=== PATIENT | female | born 1990 | race Caucasian/White ===

== ENCOUNTER 2018-01-21 19:32 | Inpatient (IN) ==
[~2018-01-21 19:32] MED LIST: CeFAZolin Premix DUPLEX 2,000 MG/50 ML BAG IVPB ONE; Famotidine 20 MG/2 ML VIAL IVP PRN; Metoclopramide 10 MG/2 ML VIAL IVP PRN; Naloxone 0.4 MG/ML INJ IVP PRN
[2018-01-21] MEDS ORDERED: Ringers Solution, Lactated 1,000 ML IVC SCH ×2 (19:45→23:32)
--- NOTE | 2018-01-21 19:50 | OB/GYN History & Physical ---
Date of Encounter: 01/21/18 Time of Encounter: 19:50 Assessment and Plan (1) premature rupture of membranes Current visit: Yes Status: Acute Consent signed for repeat , anesthesia informed, proceeding to surgery. Qualifiers: PROM onset of labor timing: onset of labor within 24 hours of rupture Qualified Code(s): O42.019 - premature rupture of membranes, onset of labor within 24 hours of rupture, unspecified trimester History of Present Illness HPI: Ms. Anderson is a 27 year old female @ 36 weeks who presents to L&D with ROM at 1:40PM. She report no bleeding, feels good FM, patient with a history of 1 prior . Patient grossly ruptured on L&D. Past Med Surg Social Fam HX - Past Medical History Medical history: no medical history Psychiatric history: no psych history - Past Surgical History Surgical History: other Additional surgical history: c/s, tonsillectomy - Social History Smoking Status: Never smoker Smokeless Tobacco Status: No Alcohol use: none Drug use: none - Family History Mother Living Status: Still Living Hx Family Cancer: Yes (melanoma) Obstetrical History - Pregnancies : 3 Para: 1 Medications and Allergies 19 Chewable Tablet 1 tab PO DAILY 10/17/15 [History] 3 Allergy/AdvReac Type Severity Reaction Status Date / Time Sulfa (Sulfonamide Allergy Hives Verified 11/10/17 16:02 Antibiotics) Review of System OB All systems PM: reviewed and no additional remarkable complaints except as stated Exam - Constitutional Constitutional: well developed - HEENT HEENT: PERRL - Neck Neck exam: full ROM - Lungs Respiratory exam: CTAB - Cardiovascular Cardiovascular exam: RRR - Abdomen Abdomen: Present: gravid - Extremities Extremities exam: warm Results Result Diagrams: 01/21/18 19:32 All other labs normal. - VTE Reasons for not Prescribing Prophylaxis: Treatment not Indicated - Low risk for VTE
[2018-01-21 20:00] LABS: Amphetamine Screen,Urine Negative ng/mL (Cutoff=1000); Barbiturate Screen,Urine Negative ng/mL (Cutoff=200); Benzodiazepines Screen,Urine Negative ng/mL (Cutoff=200); Cannabinoid Screen,Urine Negative ng/mL (Cutoff = 50); Cocaine Screen,Urine Negative ng/mL (Cutoff= 300); Opiate Screen,Urine Negative ng/mL (Cutoff=300); Phencyclidine Screen,Urine Negative ng/mL (Cutoff=25)
[2018-01-21 20:09] LABS: Basophils % 0.2 %; Eosinophils # 0.1 K/mcL (0.0-0.6); Eosinophils % 0.6 %; Hematocrit 30.2 % (35.3-44.9); Hemoglobin 10.2 g/dL (11.5-15.4); Immature Granulocytes % 0.9 % (0-4); Lymphocytes # 1.6 K/mcL (0.6-4.6); Lymphocytes % 16.6 %; Mean Corpuscular HGB Conc 33.8 g/dL (31.6-35.5); Mean Corpuscular Hemoglobin 27.9 pg (28.0-33.3); Mean Corpuscular Volume 82.7 fL (83.0-100.0); Mean Platelet Volume 11.5 fL (9.4-12.4); Monocytes # 0.6 K/mcL (0.0-1.3); Monocytes % 6.1 %; Neutrophils # 7.2 K/mcL (1.6-8.9); Platelet Count 178 K/mcL (140-400); Red Blood Count 3.65 M/mcL (3.82-4.97); Segmented Neutrophils % 75.6 %
[2018-01-21] MEDS ORDERED: *HR* FentaNYL (PF) 100 MCG/2 ML VIAL EP ONE (20:15)
[2018-01-21] MEDS ORDERED: Epidural Premix (fent/bupiv) 110 ML EP SCH (20:15)
[2018-01-21] MEDS ORDERED: Bupivacaine-MPF 0.25% 10 ML VIAL EP ONE (20:15)
--- NOTE | 2018-01-21 20:30 | Anesthesia Evaluation PreOp ---
Date of Encounter: 01/21/18 Time of Encounter: 20:17 - Past History Planned Operation: repeat c section Cardiac History: Denies any Significant Hx Pulmonary History: Denies Any Significant HX TRAFFIC CLERK History: Denies Any Significant HX Other Medical History: Denies Any Significant HX Anesthesia History: No Prior Anesthetic Complications, Past Anesthesia (T&A as child, no problems with anesthetic. Had epidural for previous c section delivery in 2016, no problems but states had "hot spot" and required additional IV meds during delivery to help with pain control. No FHAP.) : Yes Alcohol Use: none Drug use: none Medications and Allergies 19 Chewable Tablet 1 tab PO DAILY 10/17/15 [History] 3 Allergy/AdvReac Type Severity Reaction Status Date / Time Sulfa (Sulfonamide Allergy Hives Verified 11/10/17 16:02 Antibiotics) - Meds/Allergy Pre-op Review Medications Reviewed: Yes Allergies Reviewed: Yes Beta Blockers on Current Med List: No Anesthesia Results - Labs 01/21/18 19:32 Anesthesia Exam VSS and FHTs stable. Height: 5'1" Weight: 77kg NPO (# of Hours): 3 Pain Scale: 0 Pain Scale Used: Numeric (1 - 10) - HEENT Pupil (Motor): Pupils equal Mallampati: II Teeth: Normal Oral Opening: Greater than 3 - TRAFFIC CLERK LOC: Oriented TRAFFIC CLERK Motor: Normal RUE, Normal LUE, Normal RLE, Normal LLE, Normal Face TRAFFIC CLERK Sensory: Normal: RUE, LUE, RLE, LLE, Face - Cardiac Rhythm: Regular - Pulmonary Breath Sounds: bilateral Clear Respiratory Effort: Symmetrical Anesthesia Assess/Plan ASA Score: 2 Modified Taft Scale for Level of Consciousness: Cooperative, oriented, and tranquil Anesthetic Plan: Regional Monitoring Plan: Standard Monitors
[2018-01-21] MEDS ORDERED: Bupivacaine/PF 0.75% in Dex 2 ML AMPUL INFILT ONE (21:30)
[2018-01-21] MEDS ORDERED: Water for inj. (sterile) 10 ML IV ONE (21:32)
[2018-01-21] MEDS ORDERED: *HR* FentaNYL (PF) 100 MCG/2 ML VIAL ONE (21:32)
[2018-01-21] MEDS ORDERED: *HR* Oxytocin 10 UNIT/ML VIAL IM ONE ×2 (21:32→22:35)
[2018-01-21] MEDS ORDERED: Morphine Sulfate/PF 5mg/10mL Vial ONE (21:32)
[2018-01-21] MEDS ORDERED: Lidocaine -MPF 2% 5 ML VIAL ONE (21:32)
[2018-01-21] MEDS ORDERED: EPHEDrine 50 MG/ML VIAL ONE (21:32)
[2018-01-21] MEDS ORDERED: Ondansetron 4 MG/2 ML VIAL ONE (23:00)
--- NOTE | 2018-01-21 23:15 | OB/GYN Procedure Note ---
Section - Date of procedure: 01/21/18 Preop diagnosis: desires repeat , other (PPROM) Post-op diagnosis: same Procedure: section, repeat low transverse Surgeon: Bia Paniagua Blood Loss: 100 Was there an lpn medical assistant present: Yes Ice Cream Server: Sunil Marmolejo Anesthesiologist: Krysten Landaverde Upper Doubler: Stacia Mcdonald Anesthesia Type: Spinal section complications: none Disposition: L&D Recovery Room Specimens: Placenta, Cord segment, Cord blood - Infant (s) A Delivery Date: 01/21/18 Delivery Time: 22:33 Gender: Male Gram Weight: 2.715 kg at 1 minute: 9 at 5 minutes: 9 Shoulder Dystocia: not encountered Placenta: complete extraction Cord: 3 umbilical vessels - Narrative Narrative: Patient was brought to the operating room and was given spinal anesthesia. The abdomen was prepped and draped in a sterile fashion. A Pfannenstiel incision was made and carried sharply down to the level of fascia. The fascia was incised transversely. The fascia was dissected away from the underlying rectus muscles. With sharp and blunt dissection, rectus muscles were divided in midline. The perineum was entered bluntly. The incision was carried vertically with scissors. Transverse incision was made across the bladder peritoneum. The bladder was dissected away from the underlying lower uterine segment. Bladder retractor was placed to protect the bladder. The lower uterine segment was entered sharply with a scalpel. Incision was manually extended. Clear amniotic fluid was encountered. The 's head was pulled up and delivered easily as were the shoulders and body. The mouth and oropharynx were suctioned. The cord was clamped and cut. The infant was passed off to the waiting nurse in satisfactory condition. APGARS 9/9. Placenta was extracted completely and found to be intact. Uterus was explored and found to be empty. Uterus was delivered through the abdominal incision and massaged vigorously. Intravenous Pitocin was administered. The uterine incision was closed primarily with a running locking stitch of 0 Vicryl with adequate hemostasis. Secondary running locking stitch was placed for extra strength to the wound. The uterus was returned to its proper anatomic position in the abdomen. The fascia was closed with a simple running stitch of 0 vicryl. The subcutaneous tissue was closed with 3-0 vicryl. The skin was closed with running subcuticular of 4-0 vicryl. Patient was brought to the recovery room in satisfactory condition. There were no complications. There was 100 cc of blood loss. All sponge, needle, and instrument counts were reported to be correct.
[2018-01-21] MEDS ORDERED: Ringers Solution, Lactated 1,000 ML ONE (23:18)
[2018-01-21] MEDS ORDERED: Oxytocin 20 units/ LR 1000 mL 20 UNIT/1,000 ML BAG IVC ONE (23:29)
[2018-01-21] MEDS ORDERED: Simethicone 80 MG TAB.CHEW PO PRN (23:32)
[2018-01-21] MEDS ORDERED: Ondansetron 4 MG/2 ML VIAL IVP PRN (23:32)
[2018-01-21] MEDS ORDERED: Sennosides 8.6 MG TABLET PO PRN (23:32)
[2018-01-21] MEDS ORDERED: Oxytocin 20 units/ LR 1000 mL 20 UNIT/1,000 ML BAG IVC SCH (23:32)
[2018-01-21] MEDS ORDERED: *HR* OxyCODONE Immed Rel 5 MG TABLET PO PRN (23:32)
[2018-01-21] MEDS ORDERED: *HR* OxyCODONE/APAP 5/325 TABLET PO PRN (23:32)
[2018-01-21] MEDS ORDERED: Metoclopramide 10 MG/2 ML VIAL IVP PRN (23:32)
--- NOTE | 2018-01-21 23:50 | Anesthesia Evaluation Post Op ---
Date of Encounter: 01/21/18 Time of Encounter: 23:49 - Vital Signs Vital Signs: VSS - Lungs Lungs: Clear Ascult./Percussion - Airway Airway: Non-obstructed - Cardiovascular Regular Rate - Mental Status Mental Status: Alert & Oriented, Answers Appropriately - Pain Pain Scale: 2 Pain Scale used: Numeric (1 - 10) - Nausea Vomiting Nausea Vomiting: Not Present - Hydration Hydration: NPO, Saavedra catheter - Discharge PostOp Status: Transfer Patient to floor
[2018-01-21] MEDS ORDERED: Acetaminophen IV 1,000 MG/100 ML INFUS..BTL IVPB ONE (23:52)
[2018-01-22] MEDS ORDERED: *HR* Promethazine 25 MG/ML VIAL IVP PRN (00:57)
[2018-01-22] MEDS ORDERED: *HR* HYDROmorphone (PF) 1 MG/ML SYRINGE IVP PRN (00:57)
[2018-01-22] MEDS ORDERED: Ondansetron 4 MG/2 ML VIAL IVP ONE (00:57)
[2018-01-22] MEDS ORDERED: *HR* Morphine 2 MG/ML SYRINGE IVP PRN (00:57)
[2018-01-22] MEDS: Ibuprofen 600 MG TABLET PO PRN ×4 (01:07→23:03)
[2018-01-22 05:04] LABS: Basophils # 0.1 K/mcL (0.0-0.2); Basophils % 0.3 %; Eosinophils % 0.1 %; Hematocrit 28.7 % (35.3-44.9); Hemoglobin 9.7 g/dL (11.5-15.4); Immature Granulocytes % 0.6 % (0-4); Lymphocytes # 1.5 K/mcL (0.6-4.6); Lymphocytes % 8.9 %; Mean Corpuscular HGB Conc 33.8 g/dL (31.6-35.5); Mean Corpuscular Volume 82.9 fL (83.0-100.0); Mean Platelet Volume 11.5 fL (9.4-12.4); Monocytes # 0.8 K/mcL (0.0-1.3); Monocytes % 4.8 %; Platelet Count 177 K/mcL (140-400); Red Blood Count 3.46 M/mcL (3.82-4.97); Segmented Neutrophils % 85.3 %
[2018-01-22 05:12] LABS: Neutrophils # 14.8 K/mcL (1.6-8.9)
[2018-01-22] MEDS: Prenatal Vit/FA 1 EACH TABLET PO SCH (08:46)
--- NOTE | 2018-01-22 09:17 | OB/GYN Progress Note ---
Date of Encounter: 01/22/18 Time of Encounter: 09:15 Subjective - Subjective Principal diagnosis: s/p RLTCS Interval history: Feeling well. Has not been out of bed yet - is anxious to get out of bed today. Slight abdominal discomfort-using abdominal binder. Cramping minimal, using ibuprofen. Breast feeding every 2-3 hours. Some nipple soreness. Voiding without difficulty. Passing flatus, no BM yet. Tolerating regular diet. Patient reports: appetite normal, pain well controlled, no ambulating normally : doing well, nursing well Objective - Vital Signs Latest vital signs: Vital Signs Temp Pulse Resp BP Pulse Ox 01/22/18 05:05 98.4 F 81 16 106/64 97 01/22/18 04:00 98.4 F 80 16 110/71 97 01/22/18 03:00 97.8 F 66 16 115/72 98 01/22/18 02:30 98.2 F 81 16 114/77 97 01/22/18 02:00 98.3 F 78 16 119/79 99 Intake and Output 01/21/18 01/22/18 01/22/18 23:59 07:59 15:59 Intake Total 120 / 120 Output Total 625 / 625 Balance -505 / -505 Intake: Oral 120 / 120 Output: Urine 625 / 625 Other: Weight 77.2 kg 70.9 kg Patient Weight 01/22/18 23:59 Weight 70.9 kg - Exam Lungs: bilateral: normal Chest: Normal S1, Normal S2 Extremities: Present: normal, edema Abdomen: Present: normal appearance, soft Incision: Present: normal, dry, dressed Uterus: Present: normal, firm Fundal Height: 0 (midline) Comments: Breasts: Soft, nontender; nipples intact without erythema. - Labs Labs: Laboratory Results - last 24 hr 01/21/18 01/21/18 01/22/18 19:32 19:37 00:00 WBC 9.5 RBC 3.65 L Hgb 10.2 L Hct 30.2 L MCV 82.7 L MCH 27.9 L MCHC 33.8 RDW 13.0 Plt Count 178 MPV 11.5 Immature Gran % 0.9 Seg Neutrophils % 75.6 Lymphocytes % 16.6 Monocytes % 6.1 Eosinophils % 0.6 Basophils % 0.2 Neutrophils # 7.2 Lymphocytes # 1.6 Monocytes # 0.6 Eosinophils # 0.1 Basophils # 0.0 Urine Opiates Screen Negative Ur Barbiturates Screen Negative Ur Phencyclidine Scrn Negative Ur Amphetamines Screen Negative U Benzodiazepines Scrn Negative Urine Cocaine Screen Negative U Marijuana (THC) Screen Negative Baby's Blood Type O RH POSITIVE Mother's Blood Type A RH NEGATIVE Rhogam Indicated YES 01/22/18 04:47 WBC 17.3 H D RBC 3.46 L Hgb 9.7 L Hct 28.7 L MCV 82.9 L MCH 28.0 MCHC 33.8 RDW 13.0 Plt Count 177 MPV 11.5 Immature Gran % 0.6 Seg Neutrophils % 85.3 Lymphocytes % 8.9 Monocytes % 4.8 Eosinophils % 0.1 Basophils % 0.3 Neutrophils # 14.8 H Lymphocytes # 1.5 Monocytes # 0.8 Eosinophils # 0.0 Basophils # 0.1 Urine Opiates Screen Ur Barbiturates Screen Ur Phencyclidine Scrn Ur Amphetamines Screen U Benzodiazepines Scrn Urine Cocaine Screen U Marijuana (THC) Screen Baby's Blood Type Mother's Blood Type Rhogam Indicated
[2018-01-22] MEDS ORDERED: Rho Immune Globulin 1,500 UNIT SYRINGE IM ONE (14:13)
[2018-01-23] MEDS: Ibuprofen 600 MG TABLET PO PRN ×2 (06:19→11:58)
[2018-01-23 08:27] VITALS: BP 117/80
[2018-01-23] MEDS: Prenatal Vit/FA 1 EACH TABLET PO SCH (10:51)
--- NOTE | 2018-01-23 16:19 | Discharge Summary ---
Date of Encounter: 01/23/18 Time of Encounter: 16:17 - Discharge Diagnosis (1) Status post delivery Priority: Primary Status: Acute Comments: Meeting all milestones, pain was managed on by mouth pain medication , , bleeding minimal, desires discharge, - Discharge Medications Prescriptions: OxyCODONE/APAP 5/325 [Percocet 5/325 MG] 1 each PO Q4HR PRN 5 Days #20 tablet PRN Reason: Moderate pain 4-6 Ibuprofen [Motrin] 600 mg PO Q6HR PRN #60 tablet PRN Reason: Cramping Docusate [Colace] 100 mg PO BID #60 capsule Ferrous Sulfate 325 mg PO BIDWM #60 tablet Home Medications: 19 Chewable Tablet 1 tab PO DAILY 10/17/15 [History] Docusate [Colace] 100 mg PO BID #60 capsule 01/23/18 [Rx] Ferrous Sulfate 325 mg PO BIDWM #60 tablet 01/23/18 [Rx] Ibuprofen [Motrin] 600 mg PO Q6HR PRN #60 tablet 01/23/18 [Rx] OxyCODONE/APAP 5/325 [Percocet 5/325 MG] 1 each PO Q4HR PRN 5 Days #20 tablet [Rx] Vit/FA 1 each PO DAILY #0 tablet 01/23/18 [Rx] Simethicone [Gas-X] 80 mg PO TID PRN tab.chew 01/23/18 [Rx] Allergies/Adverse Reactions: 3 Allergy/AdvReac Type Severity Reaction Status Date / Time Sulfa (Sulfonamide Allergy Hives Verified 11/10/17 16:02 Antibiotics) Data Procedures and tests throughout hospitalization: Laboratory Tests 01/21/18 01/21/18 01/22/18 19:32 19:37 00:00 WBC 9.5 RBC 3.65 L Hgb 10.2 L Hct 30.2 L MCV 82.7 L MCH 27.9 L MCHC 33.8 RDW 13.0 Plt Count 178 MPV 11.5 Immature Gran % 0.9 Seg Neutrophils % 75.6 Lymphocytes % 16.6 Monocytes % 6.1 Eosinophils % 0.6 Basophils % 0.2 Neutrophils # 7.2 Lymphocytes # 1.6 Monocytes # 0.6 Eosinophils # 0.1 Basophils # 0.0 Urine Opiates Screen Negative Ur Barbiturates Screen Negative Ur Phencyclidine Scrn Negative Ur Amphetamines Screen Negative U Benzodiazepines Scrn Negative Urine Cocaine Screen Negative U Marijuana (THC) Screen Negative Screen NEGATIVE Baby's Blood Type O RH POSITIVE Mother's Blood Type A RH NEGATIVE Rhogam Indicated YES Rhogam Req for Mother 1 01/22/18 04:47 WBC 17.3 H D RBC 3.46 L Hgb 9.7 L Hct 28.7 L MCV 82.9 L MCH 28.0 MCHC 33.8 RDW 13.0 Plt Count 177 MPV 11.5 Immature Gran % 0.6 Seg Neutrophils % 85.3 Lymphocytes % 8.9 Monocytes % 4.8 Eosinophils % 0.1 Basophils % 0.3 Neutrophils # 14.8 H Lymphocytes # 1.5 Monocytes # 0.8 Eosinophils # 0.0 Basophils # 0.1 Urine Opiates Screen Ur Barbiturates Screen Ur Phencyclidine Scrn Ur Amphetamines Screen U Benzodiazepines Scrn Urine Cocaine Screen U Marijuana (THC) Screen Screen Baby's Blood Type Mother's Blood Type Rhogam Indicated Rhogam Req for Mother Date of admission: 01/21/18 19:32 Primary care physician: PCP NONE Discharging clinician: Rhiannon Vasques Anticipated date of discharge: 01/23/18 - Patient Status Disposition: Home, Self-Care Condition: Good Functional capacity at discharge: independent ambulation Overall status at discharge: patient is back to baseline - Discharge Instructions Follow Up With: NONE,PCP [Primary Care Provider] - - Diet and Activity Activity: resume usual activities as tolerated Diet: regular diet Hospital Course Reason for admission: section Delivery: section Episiotomy: none Laceration: none Other procedures: none complications: none Discharge diagnosis: IUP at term delivered baby: male Hospital course: Section - Date of procedure: 01/21/18 Preop diagnosis: desires repeat , other (PPROM) Post-op diagnosis: same Procedure: section, repeat low transverse Surgeon: Bia Briceno Quantitated Blood Loss: 100 Was there an construction management assistant present: Yes Porcelain Waxer: Sunil Marmolejo Anesthesiologist: Krysten Landaverde Doughmaker: Stacia Mcdonald Anesthesia Type: Spinal section complications: none Disposition: L&D Recovery Room Specimens: Placenta, Cord segment, Cord blood - Infant (s) Infant A Delivery Date: 01/21/18 Infant Delivery Time: 22:33 Gender: Male Gram Weight: 2.715 kg at 1 minute: 9 at 5 minutes: 9 Shoulder Dystocia: not encountered Placenta: complete extraction Cord: 3 umbilical vessels Stable in PP and appropriate for discharge. OAARS reviewed Time Attestation: Total time spent providing and/or coordinating discharge services: Time Spent: Less than 30 minutes - VTE Reasons for not Prescribing Prophylaxis: Treatment not Indicated - Low risk for VTE Documentation of Mechanical Device: Intermittent pneumatic compression device Exam - Constitutional Vitals: Temp Pulse Resp BP Pulse Ox 98 F 94 16 117/80 98 01/23/18 07:50 01/23/18 07:50 01/23/18 09:54 01/23/18 07:50 01/23/18 07:50 General appearance IM: A&O X 3 - Respiratory Respiratory exam: Present: CTAB - Cardiovascular Cardiovascular exam IM: Present: RRR - GI/Abdominal GI/Abdominal exam IM: normal bowel sounds, soft Incision: normal, intact - Uterus Position: At Umbilicus - Extremities Exam Extremities exam IM: Present: normal capillary refill, normal inspection - Neurological Exam Neurological exam: normal gait, oriented X3 - Psychiatric Additional comments: Reports good mood
== END 2018-01-23 16:49 | disposition home or self-care (01) | DRG 766 ==
LOC: 1NENULAB → 1NENUOBS 01-22 02:08
PROVIDERS: ADMIT Advanced Practice Midwife; ATTEND Advanced Practice Midwife